=== PATIENT | male | born 1960 | race Caucasian/White ===

== ENCOUNTER 2020-10-26 02:11 | Emergency (ER) | payer BC ==
[~2020-10-26] VITALS: Ht 165.1 cm; Wt 82.0 kg
[2020-10-26] MEDS ORDERED: ONDANSETRON HCL 4MG/2ML INJ IV STA (02:55)
[2020-10-26] MEDS ORDERED: SODIUM CHLORIDE 0.9% 1,000 ML IV ONE (03:00)
[2020-10-26] MEDS ORDERED: MECLIZINE 12.5MG TABLET PO ONE (03:00)
[2020-10-26 03:22] LABS: BASOPHILS % 0.4 % (0.0-2.0); EOSINOPHILS % 1.9 % (0.0-5.0); HEMATOCRIT. 45.5 % (42.0-52.0); HEMOGLOBIN. 15.5 g/dL (14.0-18.0); LYMPHOCYTES % 24.2 % (20.0-50.0); MEAN CORPUSCULAR HEMOGLOBIN 29.8 pg (28.0-32.0); MEAN CORPUSCULAR VOLUME 87.7 fL (80.0-94.0); MEAN PLATELET VOLUME 7.4 fl (7.4-10.4); MONOCYTES % 8.1 % (2.0-8.0); NEUTROPHILS % 65.4 % (40.0-76.0); PLATELET 219 x1000/uL (130-400); RED BLOOD CELL COUNT 5.19 mill/uL (4.7-6.1)
[2020-10-26 03:25] LABS: CHLORIDE 106 mEq/L (98-107)
[2020-10-26 05:39] VITALS: BP 133/73
== END 2020-10-26 05:46 | disposition home or self-care (01) ==
LOC: ER 02:11
DX: R42 Dizziness and giddiness (principal); E78.00 Pure hypercholesterolemia, unspecified
CPT/HCPCS: 36415; 70450; 71045; 80053; 84484; 85025; 93005; 96361; 96374; 99285; J2405; J8597

== ENCOUNTER 2021-05-13 19:46 | Emergency (ER) | payer BC ==
[~2021-05-13] VITALS: Ht 165.1 cm; Wt 90.0 kg
[2021-05-13] MEDS ORDERED: SODIUM CHLORIDE 0.9% 1,000 ML IV ONE (21:45)
[2021-05-13 22:54] LABS: BASOPHILS % 0.4 % (0.0-2.0); EOSINOPHILS % 1.3 % (0.0-5.0); HEMATOCRIT. 44.9 % (42.0-52.0); HEMOGLOBIN. 15.7 g/dL (14.0-18.0); LYMPHOCYTES % 21.6 % (20.0-50.0); MEAN CORPUSCULAR HEMOGLOBIN 30.3 pg (28.0-32.0); MEAN CORPUSCULAR VOLUME 86.8 fL (80.0-94.0); MEAN PLATELET VOLUME 7.3 fl (7.4-10.4); MONOCYTES % 5.7 % (2.0-8.0); PLATELET 230 x1000/uL (130-400); RED BLOOD CELL COUNT 5.18 mill/uL (4.7-6.1); RED CELL DISTRIBUTION WIDTH 13.2 % (11.6-14.6)
[2021-05-13 22:57] LABS: CHLORIDE 105 mEq/L (98-107)
[2021-05-13 23:08] LABS: PROTHROMBIN TIME 10.6 sec (9.6-11.0)
[2021-05-14 00:19] LABS: CLARITY URINE CLEAR (CLEAR); COLOR URINE YELLOW (YELLOW); KETONES URINE NEGATIVE (NEGATIVE); LEUKOCYTE ESTERASE URINE NEGATIVE (NEGATIVE); NITRITE URINE NEGATIVE (NEGATIVE); OCCULT BLOOD URINE NEGATIVE (NEGATIVE); PROTEIN URINE NEGATIVE (NEGATIVE); SPECIFIC GRAVITY URINE 1.014 (1.005-1.030); UROBILINOGEN URINE 0.2 E.U./dL (0.2-1.0)
[2021-05-14 01:17] VITALS: BP 149/82
== END 2021-05-14 01:17 | disposition home or self-care (01) ==
LOC: ER 19:46
DX: R19.7 Diarrhea, unspecified (principal); I49.9 Cardiac arrhythmia, unspecified; Z90.49 Acquired absence of other specified parts of digestive tract
CPT/HCPCS: 36415; 80053; 81003; 85025; 85610; 93005; 96360; 99284; J7030

== ENCOUNTER 2022-05-19 05:30 | Emergency (ER) | payer BC ==
[~2022-05-19] VITALS: Ht 157.5 cm; Wt 94.0 kg
[2022-05-19 05:36] VITALS: BP 146/83
[2022-05-19] MEDS ORDERED: MAG-55 MT (07:23)
[2022-05-19] MEDS ORDERED: DICY10SO PO (07:23)
[2022-05-19] MEDS ORDERED: FAMO-135 MT (07:23)
== END 2022-05-19 07:34 | disposition home or self-care (01) ==
LOC: ER 05:30
DX: A08.4 Viral intestinal infection, unspecified (principal)
CPT/HCPCS: 99283

== ENCOUNTER 2022-05-19 07:43 | Emergency (ER) | payer BC ==
[~2022-05-19] VITALS: Ht 167.6 cm; Wt 93.0 kg
[~2022-05-19 07:43] MED LIST: DICY10SO PO; FAMO-135 MT; MAG-55 MT
[2022-05-19 07:52] VITALS: BP 148/91
== END 2022-05-19 11:25 | disposition home or self-care (01) ==
LOC: ER 07:43
DX: A08.4 Viral intestinal infection, unspecified (principal)
CPT/HCPCS: 99281

== ENCOUNTER 2023-11-21 13:32 | Emergency (ER) | payer BC ==
[~2023-11-21] VITALS: Ht 165.1 cm; Wt 94.0 kg
[2023-11-21 13:38] VITALS: BP 159/96; PULSE 58; RESP 18; TEMP 97.8; O2SAT 99
[2023-11-21 14:45] LABS: BASOPHILS % 0.3 % (0.0-2.0); EOSINOPHILS % 1.2 % (0.0-5.0); HEMATOCRIT. 43.6 % (42.0-52.0); HEMOGLOBIN. 15.1 g/dL (14.0-18.0); LYMPHOCYTES % 23.8 % (20.0-50.0); MEAN CORPUSCULAR HEMOGLOBIN 30.8 pg (28.0-32.0); MEAN CORPUSCULAR HGB CONC 34.6 g/dL (31.0-37.0); MEAN CORPUSCULAR VOLUME 88.9 fL (80.0-94.0); MEAN PLATELET VOLUME 7.4 fl (7.4-10.4); MONOCYTES % 5.9 % (2.0-8.0); NEUTROPHILS % 68.8 % (40.0-76.0); PLATELET 239 x1000/uL (130-400); RED BLOOD CELL COUNT 4.91 mill/uL (4.7-6.1); RED CELL DISTRIBUTION WIDTH 13.7 % (11.6-14.6); WHITE BLOOD COUNT 6.9 x1000/uL (4.5-11.0)
[2023-11-21 14:59] LABS: ALANINE AMINOTRANSFERASE 26 IU/L (10-49); ALBUMIN 4.6 g/dL (3.2-4.8); ASPARTATE AMINOTRANSFERASE 24 IU/L (<34); BILIRUBIN TOTAL 0.4 mg/dL (0.1-1.0); CALCIUM 9.7 mg/dL (8.7-10.4); CARBON DIOXIDE 29 mEq/L (21-32); CHLORIDE 105 mEq/L (98-107); CREATININE 0.8 mg/dL (0.6-1.3); GLUCOSE 103 mg/dL (70-105); POTASSIUM 4.5 mEq/L (3.5-5.1); PROTEIN TOTAL 7.8 g/dL (6.0-8.3); SODIUM 138 mEq/L (136-145); TROPONIN I HIGH SENSITIVITY 6 ng/L (3.0-53); UREA NITROGEN BLOOD 11 mg/dL (9-23)
== END 2023-11-21 16:28 | disposition home or self-care (01) ==
LOC: ER 13:32
DX: R07.9 Chest pain, unspecified (principal); Z90.49 Acquired absence of other specified parts of digestive tract
CPT/HCPCS: 36415; 71045; 80053; 84484; 85025; 93005; 99285

== ENCOUNTER 2024-06-04 22:37 | Emergency (ER) | payer BC ==
[~2024-06-04] VITALS: Ht 165.1 cm; Wt 91.0 kg
[2024-06-04 22:47] VITALS: BP 182/82; TEMP 97.8; O2SAT 99
[2024-06-04 22:54] VITALS: PULSE 110; O2SAT 99
[2024-06-04] MEDS ORDERED: AMLO5TAB88 MT (22:55)
== END 2024-06-04 23:03 | disposition home or self-care (01) ==
LOC: ER 22:37
DX: G62.9 Polyneuropathy, unspecified (principal); I10 Essential (primary) hypertension; Z98.890 Other specified postprocedural states
CPT/HCPCS: 99283

== ENCOUNTER 2024-06-17 23:57 | Emergency (ER) | payer BC ==
[~2024-06-17] VITALS: Ht 165.1 cm; Wt 92.0 kg
[~2024-06-17 23:57] MED LIST changes: +AMLO5TAB88 MT
[2024-06-18 00:42] VITALS: O2SAT 98
[2024-06-18 01:34] LABS: BASOPHILS % 0.5 % (0.0-2.0); EOSINOPHILS % 1.6 % (0.0-5.0); HEMATOCRIT. 44.3 % (42.0-52.0); HEMOGLOBIN. 15.3 g/dL (14.0-18.0); LYMPHOCYTES % 24.7 % (20.0-50.0); MEAN CORPUSCULAR HEMOGLOBIN 30.4 pg (28.0-32.0); MEAN CORPUSCULAR HGB CONC 34.5 g/dL (31.0-37.0); MEAN CORPUSCULAR VOLUME 88.2 fL (80.0-94.0); MEAN PLATELET VOLUME 7.5 fl (7.4-10.4); MONOCYTES % 6.7 % (2.0-8.0); NEUTROPHILS % 66.5 % (40.0-76.0); PLATELET 222 x1000/uL (130-400); RED BLOOD CELL COUNT 5.02 mill/uL (4.7-6.1); RED CELL DISTRIBUTION WIDTH 13.3 % (11.6-14.6); WHITE BLOOD COUNT 6.5 x1000/uL (4.5-11.0)
[2024-06-18 01:37] LABS: CHLORIDE 105 mEq/L (98-107); POTASSIUM 4.3 mEq/L (3.5-5.1); SODIUM 139 mEq/L (136-145)
[2024-06-18 01:38] LABS: CARBON DIOXIDE 27 mEq/L (21-32)
[2024-06-18 01:39] LABS: CALCIUM 9.6 mg/dL (8.7-10.4)
[2024-06-18 01:43] LABS: CREATININE 0.9 mg/dL (0.6-1.3); GLUCOSE 124 mg/dL (70-105)
[2024-06-18 01:44] LABS: UREA NITROGEN BLOOD 15 mg/dL (9-23)
[2024-06-18 01:45] LABS: ALANINE AMINOTRANSFERASE 27 IU/L (10-49); ALBUMIN 4.4 g/dL (3.2-4.8); ASPARTATE AMINOTRANSFERASE 26 IU/L (<34)
[2024-06-18 01:46] LABS: BILIRUBIN DIRECT 0.1 mg/dL (<=3.0); BILIRUBIN TOTAL 0.5 mg/dL (0.1-1.0); PROTEIN TOTAL 7.2 g/dL (6.0-8.3)
[2024-06-18 01:48] LABS: TROPONIN I HIGH SENSITIVITY 9 ng/L (3.0-53)
[2024-06-18] MEDS: ASPIRIN 325MG EC TABLET PO ONE (09:26)
[2024-06-18 09:28] VITALS: BP 142/85; PULSE 58; RESP 18; TEMP 37.05852; O2SAT 96
== END 2024-06-18 17:29 | disposition left against medical advice (07) ==
LOC: ER 23:57 → EDBEDREQ 06-18 07:33 → EDBEDREQTM 06-18 08:59 → EDBEDREQ 06-18 08:59 → ER 06-18 17:29
DX: R07.89 Other chest pain (principal); I10 Essential (primary) hypertension; Z90.49 Acquired absence of other specified parts of digestive tract; Z79.899 Other long term (current) drug therapy
CPT/HCPCS: 99284; 80076; 80048; 83690; 85025; 84484; 36415; 74176; 93005; Z7610